=== PATIENT | male | born 1980 | race Caucasian/White ===

== ENCOUNTER 2024-11-05 19:54 | Emergency (ER) | payer SELFPAY ==
--- NOTE | 2024-11-05 19:30 | RT.EKG_ITS ---
APPROVED REPORT Exam: Resting ECG Reason for Exam: chest pain Patient Location: E HR:97 bpm ECG Measurements Heart Rate 97 AXIS VA 177 P 42 QRSd 149 QRS 9 QT 410 T 6 QTc 522 Conclusion Sinus rhythm...normal P axis, V-rate 60- 99 Nonspecific intraventricular conduction delay...QRSd >115mS, not LBBB/RBBB Probable anterior infarct, old...Q >40mS, V2-V5
[2024-11-05 19:44] VITALS: BP 163/117; PULSE 88; RESP 20; O2SAT 98
--- NOTE | 2024-11-05 19:57 | ED.GENADUL_ITS ---
Discharge Plan Disposition Patient Disposition: Against Medical Advice Condition: Serious Discharge Details Clinical Impression: Chest pain Primary Care Provider: Unknown,Unknown ED Provider: Chito Mccartney Discharge Instructions Additional Instructions: Please follow-up with your primary care provider soon as possible. If you change your mind and want to proceed with blood work and other testing you can return to the emergency department anytime. HPI General Mode of arrival: EMS . Date/Time Provider Initiated Documentation: 11/05/24 19:57 . Limitations to Documentation: no limitations . Information obtained by: patient . History of Present Illness 43 year old M presents to the emergency department with the chief complaint of anxiety, chest pain, described as moderate, Quality is described as aching, Patient started experiencing this hour(s) (2) and it has been constant. No relieving factors improve symptom(s), No exacerbating factors reported . Patient notes no other symptoms.. Patient did receive the following treatments prior to arrival, none General Stated Complaint: Chest Pain PASCUAL: 3 Review of Systems All systems reviewed & are unremarkable except as noted in HPI and below Constitutional Constitutional: Denies chills, Denies fever(s) and Denies weakness Cardiovascular Cardiovascular: Reports chest pain and Denies dyspnea Respiratory Respiratory: Denies cough and Denies dyspnea Gastrointestinal Gastrointestinal: Denies abdominal pain, Denies nausea and Denies vomiting Neurologic Neurologic: Denies weakness Psychiatric Psychiatric: Reports anxiety and Denies depression Exam Const General: no acute distress Orientation: alert HENMT Head: normal to inspection Ears: external ears normal General nose exam: external nose normal Mouth: moist mucous membranes Eyes General: appearance normal, both eyes and all related structures Neck Neck: normal visual inspection Resp Effort & Inspection: normal respiratory effort and able to speak in complete sentences Auscultation: clear to auscultation bilaterally Cardio Jugular venous pressure: no JVD Rate: regular rate Heart Sounds: no murmurs GI Palpation: soft and nontender Skin General skin exam: no rashes or lesions noted Neuro General: patient alert and patient oriented x3 Extrem General: normal to inspection Psych Mental Status: mental status grossly normal Course Vital Signs Vital signs: Vital Signs Pulse 88 11/05/24 19:44 Respiratory Rate 20 11/05/24 19:44 Blood Pressure 163/117 H 11/05/24 19:44 Pulse Oximetry 98 11/05/24 19:44 Pulse 88 11/05/24 19:44 Respiratory Rate 20 11/05/24 19:44 Blood Pressure 163/117 H 11/05/24 19:44 Blood Pressure Position Sitting 11/05/24 19:44 Pulse Oximetry 98 11/05/24 19:44 Oxygen Delivery Method Room Air 11/05/24 19:44 Oxygen Flow Rate 0 11/05/24 19:44 Medical Decision Making 43-year-old male who denies any chronic medical problems comes in with chief complaint of chest pain and anxiety. He apparently was brought to the [facility] earlier today for possible DUI and was released this evening. While being released he told them he was having chest pain so EMS evaluated him and he requested to be transferred to the [facility] but they advised he had to go to the closest emergency department so the brought here. He states that his chest pain is improving he still feels anxious. He denies any drug or alcohol use and is currently clinically sober. He is clear lung sounds, no JVD. I discussed with him that I want to proceed with blood work and possibly CT of his chest to evaluate for entities such being dissection. Patient has Medical Decision Making capacity and refusing to have any testing done. He understands the risks of not performing these test including and permanent disability as well and accepts risk. He is choosing to leave AGAINST MEDICAL ADVICE. I advised that he return if he changes his mind. He will also follow-up with his PCP soon as possible. Differential Diagnosis Differential Diagnosis: Anxiety, ACS, PE, dissection ECG Data Attestation: I personally reviewed and interpreted this ECG (s) as follows: Prior ECG tracings: not available for review Interpretation: sinus rate of 97 no stemi Quality:SDOH Health Related Social Needs: 2 No Data to Display PFSH All Active Problems (Updated 11/05/24 @ 20:02 by Chito Mccartney MD) Chest pain (Acute) Social History Smoking risk assessment performed?: No Additional Social history: pt will not answer questions
--- NOTE | 2024-11-05 20:19 | NUR.NOTE ---
Nursing Note: PT BIBA from [facility], declined to answer any questions, declined IV access or blood draws. Asked this nurse if the provider admit me over night for observation or something this RN explained how hospitals work. PT given risk opf leaving AMA PT declined signing AMA and D/C papers.
== END 2024-11-05 20:11 | disposition left against medical advice (07) ==
LOC: ER 20:08
PROVIDERS: Emergency Provider Emergency Medicine
DX: R07.9 Chest pain, unspecified (principal); Z53.29 Procedure and treatment not carried out because of patient's decision for other reasons
CPT/HCPCS: 80053; 93005; 99283; 83735; 84484; 85025; 85610; 85730; 93010